=== PATIENT | male | born 1950 | race Caucasian/White ===

== ENCOUNTER → 2020-04-08 | Outpatient (REF) | payer OTHER | LOC: M SMT 16:38 | PROVIDERS: ATTEND Nurse Practitioner Family | DX: R97.20 Elevated prostate specific antigen [PSA] (principal); R39.9 Unspecified symptoms and signs involving the genitourinary system | CPT/HCPCS: 51798; 87086; G0463 ==

== ENCOUNTER → 2020-04-26 | Outpatient (CLI) | payer OTHER ==
[~2020-04-26] MED LIST: PROHANCE 279.3MG/ML 5ML VIAL As Ordered ONE
--- NOTE | 2020-04-26 22:54 | REP ---
MULTIPARAMETRIC MRI OF THE PROSTATE WITH AND WITHOUT CONTRAST: HISTORY: Elevated PSA. TECHNIQUE: Multiple sequences obtained prior to and following the intravenous administration of 9 mL ProHance. Images are evaluated on the [employer] software in order to identify regions of interest for MR/ultrasound fusion-guided biopsy. In the pelvis, I see no suspicious bone lesion. There are two bone islands in the left iliac bone. I see no pelvic adenopathy or free fluid. There are small bilateral inguinal hernias containing fat. The prostate is enlarged, measuring 5.4 x 4.8 x 4.7 cm. There are diffuse nodular areas in the prostate with mixed low and high signal, compatible with benign prostatic hypertrophy. Seminal vesicles appear symmetrical. Three regions of interest are identified for potential MR fusion-guided biopsy. First, in the left posterior transitional zone at the base and in the left mid transitional zone, there is a geographic area of predominantly low signal on T2- and diffusion-weighted imaging with predominantly type 3 enhancement. The area measures 2.6 x 1.1 x 2.4 cm for a total volume is 3.56 mL. Overall level of suspicion is 3/5 with clinically significant cancer equivocal. Next, in the right mid anterior transitional zone and right apical transitional zone, there is a similar appearing geographic area of predominantly low signal on T2- and diffusion-weighted imaging. There are areas of type 3 enhancement in this region. The area measures approximately 2.0 x 1.6 x 1.7 cm for total volume of 2.67 mL. Overall level of suspicion is 3/5 with clinically significant cancer equivocal. Finally, in the posterior peripheral zone in the base of the prostate bilaterally, there are nodular areas of low signal on T2- and diffusion-weighted imaging. These are somewhat ill defined. These areas demonstrate predominantly type 2 enhancement characteristics. They are scattered bilaterally in this portion of the peripheral zone with the approximate area measuring 4.4 x 0.4 x 1.4 cm; total volume is 3.50 mL. Overall level of suspicion is 3/5 with clinically significant cancer equivocal. IMPRESSION: Prostatic hypertrophy, as discussed above. There are three regions of interest identified in the [employer] software for potential MR/ultrasound fusion-guided biopsy. Electronically Signed by Herrera Barros MD 04/28/2020 10:26 A
== END ==
LOC: M RAD 14:15 → EDUNIT# 15:15
PROVIDERS: ATTEND Nurse Practitioner Family
DX: R97.20 Elevated prostate specific antigen [PSA] (principal); K40.20 Bilateral inguinal hernia, without obstruction or gangrene, not specified as recurrent; N40.0 Benign prostatic hyperplasia without lower urinary tract symptoms
CPT/HCPCS: 72197; A9576

== ENCOUNTER → 2020-05-10 | Outpatient (CLI) | payer OTHER ==
--- NOTE | 2020-05-10 13:25 | REPPI ---
Prostate sonography: History: Elevated PSA. Sonographic findings: Transrectal sonographic guidance is provided to Dr. Fontaine who performed trans rectal ultrasound guided needle biopsy procedure . Electronically Signed by Andrew Chow MD 05/10/2020 01:16 P
== END ==
LOC: M SMT PRO 10:27
PROVIDERS: ATTEND Urology
DX: R97.20 Elevated prostate specific antigen [PSA] (principal)
CPT/HCPCS: 55700; 76942; G0416